=== PATIENT | female | born 1985 | race African-American/Black ===

== ENCOUNTER 2016-09-11 15:33 | Emergency (ER) | payer OTHER ==
[~2016-09-11] VITALS: Ht 170.2 cm; Wt 78.0 kg
[~2016-09-11 15:33] MED LIST: PREN27TA3 PO
[2016-09-11 16:16] LABS: BASO % 0.2 % (0.0-1.0); EOS # 0.1 K/mm3 (0.0-0.50); EOS % 2.1 % (0.0-3.0); LARGE UNSTAINED CELL # 0.1 K/mm3 (0.0-0.4); LARGE UNSTAINED CELL % 1.9 % (0.0-4.0); LYMPH # 1.5 K/mm3 (1.5-4.5); LYMPH % 40.3 % (24.0-44.0); MEAN CORPUSCULAR HEMOGLOBIN 32.2 pg (27.0-33.0); MEAN CORPUSCULAR HGB CONC 32.1 g/dl (32.0-36.5); MEAN CORPUSCULAR VOLUME 100.2 fl (80.0-96.0); MONO # 0.2 K/mm3 (0.0-0.8); MONO % 5.3 % (0.0-5.0); NEUTROPHILS # 1.7 K/mm3 (1.8-7.7); NEUTROPHILS % 50.2 % (36.0-66.0); PLATELET COUNT, AUTOMATED 219 k/mm3 (150-450); RED CELL DISTRIBUTION WIDTH 12.2 % (11.5-14.5); WHITE BLOOD COUNT 3.4 K/mm3 (4.0-10.0)
[2016-09-11 16:32] LABS: INR 0.93
[2016-09-11 16:37] LABS: CONTROL LINE HCG INT CTR LINE PRESENT
[2016-09-11 16:45] LABS: ANION GAP 6 MEQ/L (8-16); BLOOD UREA NITROGEN 15 MG/DL (7-18); CALCIUM LEVEL 8.3 MG/DL (8.5-10.1); CARBON DIOXIDE LEVEL 26 MEQ/L (21-32); CHLORIDE LEVEL 109 MEQ/L (98-107); CREATININE FOR GFR 0.71 MG/DL (0.55-1.02); GLOMERULAR FILTRATION RATE > 60.0 (>60); GLUCOSE, FASTING 99 MG/DL (70-105); POTASSIUM SERUM 3.8 MEQ/L (3.5-5.1); SODIUM LEVEL 141 MEQ/L (136-145)
[2016-09-11] MEDS ORDERED: IBUP600T26 PO (17:20)
--- NOTE | 2016-09-11 17:28 | REP ---
Clinical: Chest pain . Comparison: None . Technique: PA and lateral. Findings: The mediastinum and cardiac silhouette are normal. The lung serrano are clear and without acute consolidation, effusion, or pneumothorax. The skeletal structures are intact and normal. Impression: 1. No acute cardiopulmonary process. Signed by Chava Grullon MD 09/11/2016 05:19 P
[2016-09-11 17:31] VITALS: BP 127/89
--- NOTE | 2016-09-11 19:55 | ECGEPIP ---
Stationary ECG Study [facility] - ED Test Date: 2016-09-11 Pat Name: MAGGY SCHMID Department: Room: - Gender: F Record Clerk Salesperson: : [id number] Requested By: MARTA MIGUEL Order Number: [id number] Reading MD: Pham Eid Measurements Intervals [place] Rate: 80 P: 51 MA: 180 QRS: 35 QRSD: 86 T: 29 QT: 378 QTc: 438 Interpretive Statements SINUS RHYTHM WITH SINUS ARRHYTHMIA NO PRIOR FOR COMPARISON Electronically Signed On 09-11-2016 19:54:49 EDT by Pham Eid
== END 2016-09-11 17:32 | disposition home or self-care (01) ==
LOC: M ED 15:56
DX: R07.89 Other chest pain (principal)

== ENCOUNTER → 2016-10-19 | Outpatient (REF) | payer OTHER ==
[~2016-10-19] MED LIST changes: +IBUP600T26 PO
== END ==
LOC: M SFHCLERA 18:21
PROVIDERS: ATTEND Nurse Practitioner Family
DX: R10.9 Unspecified abdominal pain (principal)

== ENCOUNTER → 2016-10-19 | Outpatient (CLI) | payer OTHER ==
--- NOTE | 2016-10-19 19:16 | REP ---
ABDOMINAL SERIES: Supine and erect views of the abdomen demonstrate no free air and no evidence for obstruction. No dilated small bowel loops are seen. There are multiple phleboliths as well an IUD in the pelvis. The visualized osseous structures appear unremarkable. An accompanying view of the chest demonstrates no acute infiltrate. The heart is normal in size. IMPRESSION: Unremarkable abdominal series. Signed by Sixto Mauricio MD 10/19/2016 07:54 P
== END ==
LOC: M LRY 18:09
PROVIDERS: ATTEND Nurse Practitioner Family
DX: R10.9 Unspecified abdominal pain (principal)
CPT/HCPCS: 74022; 87086; 87491; 87591; G0463